=== PATIENT | male | born 1975 | race American Indian/Alaskan Native ===

== ENCOUNTER 2017-06-06 01:35 | Inpatient (IN) | payer OTHER ==
[2017-06-06] MEDS ORDERED: ZEMURON IV ONE ×2 (02:05→05:53)
[2017-06-06] MEDS ORDERED: ARTIFICIAL TEARS OPHTH OINT OU PRN (02:09)
[2017-06-06] MEDS ORDERED: VASELINE LIP THERAPY TP PRN ×2 (02:09→05:38)
--- NOTE | 2017-06-06 02:12 | XRay Report ---
FINAL REPORT EXAM: XR CHEST 1V AP HISTORY: repiratory failure TECHNIQUE: A portable supine view of the chest was submitted. There are no previous studies available for comparison. FINDINGS: The heart size and mediastinum appear normal. The patient is intubated. The tip of the ET tube is 2 cm above the chani in good position. The lungs are clear. Pleural fluid is not seen. The bones and soft tissues do not show any acute changes. IMPRESSION: Satisfactory intubation. No acute infiltrates or congestion.
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
[2017-06-06] MEDS ORDERED: VERSED IV ONE ×2 (02:23→05:53)
[2017-06-06 02:50] LABS: Bilirubin,Urine NEG (Negative); Blood,Urine SM (Negative); Color,Urine Straw (Yellow); Hyaline Casts,Urine 1 /LPF; Nitrite,Urine NEG (Negative); Urobilinogen,Urine < 2.0 mg/dL (<2.0)
[2017-06-06 02:52] LABS: Hemoglobin 11.2 gm/dl (11.8-15.2); Mean Corpuscular HGB Conc 31 % (32-34); Mean Corpuscular Hemoglobin 28 pg (28-32); Mean Corpuscular Volume 89 fl (84-94); Red Blood Count 4.05 M/mm3 (3.65-5.03); Red Cell Distribution Width 16.2 % (13.2-15.2)
[2017-06-06 02:53] LABS: Platelet Count 93 K/mm3 (140-440)
[2017-06-06 02:54] LABS: Creatine Kinase MB 2.1 ng/mL (0.0-4.0)
[2017-06-06 02:55] LABS: Alanine Aminotransferase 31 units/L (7-56); Albumin 4.2 g/dL (3.9-5); BUN/Creatinine Ratio 13; Blood Urea Nitrogen 12 mg/dL (9-20); Calcium 8.4 mg/dL (8.4-10.2); Hemolysis Index 11
[2017-06-06] MEDS: MIDAZOLAM 100 MG in NACL 0.9% 80 ML IV SCH ×2 (03:00→12:18)
[2017-06-06] MEDS ORDERED: VERSED IV NR (03:00)
[2017-06-06 03:26] LABS: Amphetamine Screen,Urine PRESUMPTIVE NEGATIVE; Cannabinoid Screen,Urine PRESUMPTIVE NEGATIVE; Cocaine Screen,Urine PRESUMPTIVE NEGATIVE; Methadone Screen,Urine PRESUMPTIVE NEGATIVE; Opiate Screen,Urine PRESUMPTIVE NEGATIVE
[2017-06-06 03:40] LABS: Basophils % (Manual) 0 % (0.0-1.8); Eosinophils % (Manual) 0 % (0.0-4.3); Platelet Estimate Appears Decreased; Target Cells Few; Total Cells Counted 100
[2017-06-06 04:08] LABS: Benzodiazepines Screen,Urine PRESUMPTIVE POSITIVE
[2017-06-06] MEDS ORDERED: DIPRIVAN 10 MG/ML 1,000 MG/100 ML BOTTLE IV ONE (04:35)
[2017-06-06] MEDS ORDERED: DIPRIVAN 10 MG/ML IV SCH (04:35)
[2017-06-06] MEDS: DIPRIVAN 10 MG/ML 1,000 MG/100 ML BOTTLE IV SCH ×4 (05:52→21:17)
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
[2017-06-06] MEDS ORDERED: HEPARIN SUB-Q SCH (06:00)
[2017-06-06] MEDS ORDERED: VITAMIN B-1 100 MG, FOLVITE 1 MG, INFUVITE 10 ML in NACL 0.9% 1000 ML 1,000 ML IV ONE (06:12)
[2017-06-06] MEDS ORDERED: PANCREAZE DR 10,500 UNIT FEEDTUBE PRN (10:53)
[2017-06-06] MEDS ORDERED: SODIUM BICARBONATE FEEDTUBE PRN (10:53)
[2017-06-06] MEDS ORDERED: SIMPLE SYRUP FEEDTUBE PRN ×2 (10:53)
[2017-06-06] MEDS: KCL 20 MEQ in LACTATED RINGERS 1,000 ML IV SCH ×2 (11:36→21:16)
[2017-06-06] MEDS: fentaNYL DRIP Premix 2,000 MCG/100 ML BAG IV SCH (18:09)
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
--- NOTE | 2017-06-06 18:59 | Event Note ---
Date: 06/06/17 Patient seen and examined, remains on full ventilatory support. Start on gentle hydration, monitor for withdrawal, ARDS and electrolyte abnormality and address as need. Will follow in the ICU
[2017-06-07] MEDS: APRESOLINE IV PRN (03:15)
--- NOTE | 2017-06-07 03:51 | XRay Report ---
FINAL REPORT EXAM: XR CHEST 1V AP HISTORY: follow up respiratory failure TECHNIQUE: A portable upright view the chest was obtained. Comparison is made to the study of 06/06/2017. FINDINGS: The tip of the ET tube is in good position above the chani. The heart size is normal. The lungs are clear. Pleural fluid is not seen. The bones and soft tissues do not show any acute changes. IMPRESSION: No acute infiltrates or congestion.
[2017-06-07] MEDS ORDERED: DILAUDID IV ONE (04:29)
[2017-06-07] MEDS ORDERED: DILAUDID ONE (04:29)
[2017-06-07] MEDS: KCL 20 MEQ in LACTATED RINGERS 1,000 ML IV SCH ×2 (05:04→12:05)
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
[2017-06-07] MEDS ORDERED: Fluarix Quad 2017-2018(36 MOS+ IM ONE (12:00)
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
[2017-06-08] MEDS: KCL 20 MEQ in LACTATED RINGERS 1,000 ML IV SCH ×3 (01:22→20:02)
[2017-06-08] MEDS: DIPRIVAN 10 MG/ML 1,000 MG/100 ML BOTTLE IV SCH ×4 (01:23→23:16)
--- NOTE | 2017-06-08 03:21 | XRay Report ---
FINAL REPORT EXAM: XR CHEST 1V AP HISTORY: follow up respiratory failure TECHNIQUE: A portable semi-upright view of the chest was obtained and compared to the study of 06/07/2017. FINDINGS: The ET tube is in good position above the chani. The heart size is normal. There are no localized infiltrates or congestion. There are EKG leads overlying the chest wall. The bones and soft tissues otherwise are well maintained IMPRESSION: No acute infiltrates or congestion.
[2017-06-08] MEDS: fentaNYL DRIP Premix 2,000 MCG/100 ML BAG IV SCH ×3 (04:00→19:27)
[2017-06-08] MEDS: MIDAZOLAM 100 MG in NACL 0.9% 80 ML IV SCH ×2 (04:01→23:16)
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
[2017-06-08] MEDS: PEPCID IV SCH ×2 (10:47→22:38)
[2017-06-08] MEDS: APRESOLINE IV PRN (11:07)
[2017-06-08 11:14] LABS: Basophils % (Auto) 0.8 % (0.0-1.8); Eosinophils % (Auto) 1.1 % (0.0-4.3); Hemoglobin 12.1 gm/dl (11.8-15.2); Lymphocytes # (Auto) 1.2 K/mm3 (1.2-5.4); Lymphocytes % (Auto) 27.1 % (13.4-35.0); Mean Corpuscular HGB Conc 31 % (32-34); Mean Corpuscular Hemoglobin 28 pg (28-32); Mean Corpuscular Volume 90 fl (84-94); Monocytes # (Auto) 0.4 K/mm3 (0.0-0.8); Monocytes % (Auto) 8.7 % (0.0-7.3); Red Blood Count 4.35 M/mm3 (3.65-5.03); Red Cell Distribution Width 16.1 % (13.2-15.2)
[2017-06-08 11:16] LABS: Platelet Count 83 K/mm3 (140-440)
[2017-06-08 11:30] LABS: Alanine Aminotransferase 18 units/L (7-56); Albumin 3.3 g/dL (3.9-5); BUN/Creatinine Ratio 16; Blood Urea Nitrogen 8 mg/dL (9-20); Calcium 8.1 mg/dL (8.4-10.2); Hemolysis Index 70
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
[2017-06-09] MEDS: fentaNYL DRIP Premix 2,000 MCG/100 ML BAG IV SCH ×4 (02:25→23:49)
[2017-06-09] MEDS: KCL 20 MEQ in LACTATED RINGERS 1,000 ML IV SCH ×3 (02:26→20:00)
[2017-06-09 04:14] LABS: Hematocrit 34.4 % (35.5-45.6); Mean Corpuscular HGB Conc 32 % (32-34); Mean Corpuscular Hemoglobin 28 pg (28-32); Mean Corpuscular Volume 88 fl (84-94); Red Blood Count 3.92 M/mm3 (3.65-5.03)
[2017-06-09 04:15] LABS: Platelet Count 82 K/mm3 (140-440)
[2017-06-09 04:41] LABS: BUN/Creatinine Ratio 12; Blood Urea Nitrogen 6 mg/dL (9-20); Calcium 7.9 mg/dL (8.4-10.2); Hemolysis Index 8
[2017-06-09] MEDS ORDERED: D50W (25GM) Syringe IV PRN (05:07)
[2017-06-09] MEDS: DIPRIVAN 10 MG/ML 1,000 MG/100 ML BOTTLE IV SCH ×4 (05:18→23:49)
[2017-06-09] MEDS: MIDAZOLAM 100 MG in NACL 0.9% 80 ML IV SCH ×2 (05:41→21:36)
--- NOTE | 2017-06-09 09:23 | XRay Report ---
FINAL REPORT PROCEDURE: XR CHEST 1V AP TECHNIQUE: Chest radiograph anteroposterior view. CPT 98116 HISTORY: follow up respiratory failure COMPARISON: Chest one view 06/08/2017 FINDINGS: Endotracheal tube has its tip at the mid to inferior clavicular head level. The trachea is midline. The heart is normal in size. The lungs are clear. There is no evident pneumothorax or pleural fluid. The thoracic cage is intact. IMPRESSION: Endotracheal tube in place. No evident acute cardiopulmonary disease.
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
[2017-06-09] MEDS: PEPCID IV SCH ×2 (10:20→21:37)
[2017-06-09] MEDS ORDERED: XYLOCAINE 1% 20 mL ONE (10:41)
[2017-06-09] MEDS ORDERED: ADRENALIN ONE (10:41)
[2017-06-09] MEDS ORDERED: NACL 0.9% 1000 ML 0 ML ONE (10:42)
[2017-06-09] MEDS ORDERED: WATER FOR IRRIG STERILE IR ONE (10:42)
[2017-06-09] MEDS ORDERED: NACL 0.9% 1000 ML 1,000 ML ONE (11:06)
[2017-06-09] MEDS ORDERED: NACL 0.9% 1,000 ML IR ONE (11:33)
[2017-06-09] MEDS ORDERED: XYLOCAINE 2% INFILTRATI ONE (11:34)
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
[2017-06-09] MEDS: APRESOLINE IV PRN (13:30)
--- NOTE | 2017-06-09 15:57 | XRay Report ---
KUB: 06/09/17 CLINICAL: Feeding tube placement. FINDINGS: A Dobbhoff tube tip is in the left upper quadrant and apparently in the distal stomach.Normal gas pattern. IMPRESSION: Satisfactory position of the feeding tube.
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
--- NOTE | 2017-06-10 04:05 | XRay Report ---
FINAL REPORT EXAM: XR CHEST 1V AP HISTORY: follow up respiratory failure COMPARISON: June 09, 2017 FINDINGS: Frontal view(s) of the chest obtained. Heart normal in size. ETT remains in place. Feeding tube is in place. Distal tip not visualized but extends at least to the mid stomach. There is a small airspace opacity lateral margin right lung base new from prior study concerning for developing pneumonia versus atelectasis. Remaining lungs are grossly clear. No gross focal lucency to suggest pneumothorax. Opacity right lung apex appears to represent overlying support tubing. IMPRESSION: Small opacity lateral right lung base new from prior study concerning for developing atelectasis versus pneumonia. Interval placement of feeding tube. ETT stable in position.
[2017-06-10] MEDS: DIPRIVAN 10 MG/ML 1,000 MG/100 ML BOTTLE IV SCH ×4 (04:35→21:07)
[2017-06-10] MEDS: PROVENTIL IH SCH ×6 (04:58→20:48)
[2017-06-10] MEDS: fentaNYL DRIP Premix 2,000 MCG/100 ML BAG IV SCH ×3 (06:01→19:28)
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
[2017-06-10] MEDS: PEPCID PO SCH ×2 (10:06→21:06)
[2017-06-10] MEDS ORDERED: SIMPLE SYRUP FEEDTUBE PRN ×2 (10:06)
[2017-06-10] MEDS ORDERED: PANCREAZE DR 10,500 UNIT FEEDTUBE PRN (10:06)
[2017-06-10] MEDS ORDERED: SODIUM BICARBONATE FEEDTUBE PRN (10:06)
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
[2017-06-10] MEDS: MIDAZOLAM 100 MG in NACL 0.9% 80 ML IV SCH (21:53)
[2017-06-11] MEDS: DIPRIVAN 10 MG/ML 1,000 MG/100 ML BOTTLE IV SCH ×5 (01:45→17:46)
[2017-06-11] MEDS: PROVENTIL IH SCH ×4 (01:56→19:19)
[2017-06-11 03:50] LABS: Hematocrit 37.2 % (35.5-45.6); Mean Corpuscular HGB Conc 32 % (32-34); Mean Corpuscular Hemoglobin 28 pg (28-32); Mean Corpuscular Volume 87 fl (84-94); Platelet Count 112 K/mm3 (140-440); Red Blood Count 4.29 M/mm3 (3.65-5.03); Red Cell Distribution Width 14.8 % (13.2-15.2)
[2017-06-11 04:17] LABS: BUN/Creatinine Ratio 16; Blood Urea Nitrogen 8 mg/dL (9-20); Calcium 8.9 mg/dL (8.4-10.2); Hemolysis Index 11
[2017-06-11] MEDS: fentaNYL DRIP Premix 2,000 MCG/100 ML BAG IV SCH ×2 (05:18→13:43)
--- NOTE | 2017-06-11 07:41 | XRay Report ---
FINAL REPORT EXAM: XR CHEST 1V AP HISTORY: follow up respiratory failure TECHNIQUE: AP portable view(s) of the chest obtained. PRIORS: 06/10/2017 FINDINGS: Endotracheal tube terminates approximately 5 cm from the chani. Enteric tube courses below the diaphragm and off of the inferior field of view. No mediastinal shift. Cardiac silhouette is not enlarged. No pneumothorax, effusion, or focal pulmonary opacity identified. No acute skeletal findings. IMPRESSION: Satisfactory appearance of patient's support apparatus without pneumothorax or other acute finding compared to 06/10/2017.
[2017-06-11] MEDS: PEPCID PO SCH ×2 (09:52→21:15)
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
[2017-06-11] MEDS: APRESOLINE IV PRN ×2 (16:38→19:33)
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
[2017-06-11] MEDS: HALDOL IV PRN (19:00)
[2017-06-11] MEDS ORDERED: ATIVAN IV ONE (20:00)
[2017-06-11] MEDS: ATIVAN IV PRN ×2 (21:29→22:13)
[2017-06-12] MEDS: ATIVAN IV PRN ×11 (00:05→15:27)
[2017-06-12] MEDS: APRESOLINE IV PRN ×4 (01:41→21:22)
[2017-06-12] MEDS: PROVENTIL IH SCH ×4 (01:47→20:26)
[2017-06-12] MEDS: HALDOL IV PRN ×3 (08:40→21:22)
--- NOTE | 2017-06-12 09:49 | XRay Report ---
AP CHEST: HISTORY: Followup respiratory failure The patient has been extubated and the feeding tube has been removed since 06/11/17. There is minor segmental atelectasis at the left lung base, otherwise, the lungs are clear. Heart and mediastinal structures are within normal limits. IMPRESSION: Unremarkable AP chest.
[2017-06-12] MEDS: PEPCID PO SCH ×2 (13:58→21:23)
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
[2017-06-12] MEDS: D5/0.45NS 1,000 ML IV SCH (18:09)
[2017-06-13] MEDS: ATIVAN IV PRN ×6 (00:28→23:17)
[2017-06-13] MEDS: D5/0.45NS 1,000 ML IV SCH ×3 (00:34→18:08)
[2017-06-13] MEDS: PROVENTIL IH SCH ×4 (02:21→19:41)
[2017-06-13] MEDS: HALDOL IV PRN ×3 (02:37→22:35)
--- NOTE | 2017-06-13 03:10 | XRay Report ---
FINAL REPORT EXAM: XR CHEST 1V AP HISTORY: follow up respiratory failure COMPARISON: June 11, 2017. FINDINGS: Frontal view(s) of the chest obtained. Cardiac silhouette within normal limits. No gross consolidation or effusion. No pneumothorax. IMPRESSION: No grossly acute findings.
[2017-06-13] MEDS: APRESOLINE IV PRN ×2 (09:58→14:32)
[2017-06-13] MEDS: PEPCID IV SCH ×2 (09:59→22:35)
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
[2017-06-13 13:41] LABS: Hemoglobin 11.2 gm/dl (11.8-15.2); Mean Corpuscular HGB Conc 32 % (32-34); Mean Corpuscular Hemoglobin 28 pg (28-32); Mean Corpuscular Volume 86 fl (84-94); Platelet Count 144 K/mm3 (140-440); Red Blood Count 4.06 M/mm3 (3.65-5.03)
[2017-06-13 14:00] LABS: BUN/Creatinine Ratio 18; Blood Urea Nitrogen 9 mg/dL (9-20); Calcium 8.9 mg/dL (8.4-10.2); Hemolysis Index 1
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
[2017-06-14] MEDS: ATIVAN IV PRN ×2 (00:38→04:05)
[2017-06-14] MEDS: PROVENTIL IH SCH ×4 (01:55→20:00)
[2017-06-14] MEDS: HALDOL IV PRN (03:20)
[2017-06-14] MEDS: APRESOLINE IV PRN (04:21)
[2017-06-14] MEDS: PEPCID IV SCH ×2 (09:28→21:05)
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
[2017-06-14] MEDS: D5/0.45NS 1,000 ML IV SCH ×2 (13:20→20:48)
[2017-06-14] MEDS: HEPARIN SUB-Q SCH ×2 (14:35→21:05)
[2017-06-14] MEDS: LIBRIUM PO SCH ×2 (14:58→20:41)
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
[2017-06-15] MEDS: PROVENTIL IH SCH ×4 (02:11→20:16)
[2017-06-15] MEDS: LIBRIUM PO SCH ×3 (03:35→21:22)
[2017-06-15] MEDS: D5/0.45NS 1,000 ML IV SCH (04:58)
[2017-06-15] MEDS: HEPARIN SUB-Q SCH ×3 (04:59→21:22)
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
[2017-06-15] MEDS ORDERED: CATAPRES-TTS PATCH TD SCH (10:00)
[2017-06-15] MEDS: PEPCID PO SCH ×2 (11:03→21:21)
[2017-06-15] MEDS: APRESOLINE PO SCH ×2 (14:43→21:21)
[2017-06-16] MEDS: PROVENTIL IH SCH ×2 (01:51→08:30)
[2017-06-16] MEDS: LIBRIUM PO SCH (04:44)
[2017-06-16] MEDS: APRESOLINE PO SCH (06:11)
[2017-06-16] MEDS: HEPARIN SUB-Q SCH (06:12)
[2017-06-16 06:40] LABS: Hematocrit 35.9 % (35.5-45.6); Hemoglobin 11.5 gm/dl (11.8-15.2); Mean Corpuscular HGB Conc 32 % (32-34); Mean Corpuscular Hemoglobin 28 pg (28-32); Mean Corpuscular Volume 86 fl (84-94); Platelet Count 166 K/mm3 (140-440); Red Blood Count 4.16 M/mm3 (3.65-5.03); Red Cell Distribution Width 15.1 % (13.2-15.2)
[2017-06-16 07:04] LABS: BUN/Creatinine Ratio 13; Blood Urea Nitrogen 8 mg/dL (9-20); Calcium 8.6 mg/dL (8.4-10.2); Hemolysis Index 4
[2017-06-16 08:14] VITALS: BP 134/89
[2017-06-16] MEDS ORDERED: K-DUR PO SCH (09:00)
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
[2017-06-16] MEDS: PEPCID PO SCH (10:12)
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
== END 2017-06-16 12:40 | disposition home or self-care (01) | DRG 917 ==
LOC: ED 01:35 → CC1 05:58
PROVIDERS: ADMIT Internal Medicine; ATTEND Internal Medicine
PROC: 5A1955Z Respiratory Ventilation, Greater than 96 Consecutive Hours (ICD-10-PCS; 2017-06-06)
PROC: 4A033R1 Measurement of Arterial Saturation, Peripheral, Percutaneous Approach (ICD-10-PCS; 2017-06-06)
PROC: 0BH17EZ Insertion of Endotracheal Airway into Trachea, Via Natural or Artificial Opening (ICD-10-PCS; 2017-06-06)
PROC: 3E0234Z Introduction of Serum, Toxoid and Vaccine into Muscle, Percutaneous Approach (ICD-10-PCS; principal; 2017-06-07)
PROC: 3E1F88Z Irrigation of Respiratory Tract using Irrigating Substance, Via Natural or Artificial Opening Endoscopic (ICD-10-PCS; 2017-06-09)
PROC: 5A09557 Assistance with Respiratory Ventilation, Greater than 96 Consecutive Hours, Continuous Positive Airway Pressure (ICD-10-PCS; 2017-06-11)
DX: T58.91XA Toxic effect of carbon monoxide from unspecified source, accidental (unintentional), initial encounter (principal); J96.00 Acute respiratory failure, unspecified whether with hypoxia or hypercapnia; G92 Toxic encephalopathy; T27.3XXA Burn of respiratory tract, part unspecified, initial encounter; E87.2 Acidosis; I10 Essential (primary) hypertension; E86.0 Dehydration; J70.5 Respiratory conditions due to smoke inhalation; J40 Bronchitis, not specified as acute or chronic; E16.2 Hypoglycemia, unspecified; D64.9 Anemia, unspecified; D69.6 Thrombocytopenia, unspecified; K70.10 Alcoholic hepatitis without ascites; F10.129 Alcohol abuse with intoxication, unspecified; Z79.899 Other long term (current) drug therapy; Z71.41 Alcohol abuse counseling and surveillance of alcoholic; Z91.19 Patient's noncompliance with other medical treatment and regimen; Y93.89 Activity, other specified; Y99.8 Other external cause status; Y92.89 Other specified places as the place of occurrence of the external cause; Z23 Encounter for immunization
CPT/HCPCS: 36415; 36600; 70450; 71045; 74018; 80048; 80053; 80307; 80320; 81001; 82550; 82553; 82803; 82962; 84478; 84484; 85007; 85025; 85027; 87070; 87205; 90686; 93005; 93010; 94002; 94003; 94640; 94660; 94760; 96365; 96366; 96375; 99292; G0480; J0171; J0360; J1170; J1630; J1644; J2060; J2250; J2704; J2920; J3010; J3411; J3480; J7030; J7120

== ENCOUNTER 2017-10-06 13:29 | Emergency (ER) | payer OTHER ==
[2017-10-06 14:19] VITALS: BP 115/78
--- NOTE | 2017-10-06 14:55 | XRay Report ---
LEFT FOOT, 3 views: History: Pain and swelling. The bony architecture is intact. Bony alignment is normal. No soft tissue abnormalities are seen. The joint spaces appear preserved. IMPRESSION: Normal left foot.
[2017-10-06] MEDS ORDERED: MOTRIN PO ONE (16:16)
--- NOTE | 2017-10-06 16:21 | Emergency Department Report ---
ED Lower Extremity HPI - General Chief Complaint: Extremity Injury, Lower Stated Complaint: FOOT PAIN Time Seen by Provider: 10/06/17 16:15 Source: patient Mode of arrival: Ambulatory Limitations: No Limitations - History of Present Illness Initial Comments: This is a 41-year-old male nontoxic, well nourished in appearance, no acute signs of distress presents to the ED with c/o of left foot pain status post fall that occurred today. Patient stated that he was getting out of his truck today and fell on his foot. Patient stated that he did not have any trauma to the head or any other extremities. Patient denies any joint redness, joint swelling, fever, chills, nausea, vomiting, chest pain or shortness breath. Patient denies abnormal or decreased gait. Patient denies any allergies. PMH includes HTN and DM. MD Complaint: foot injury -: This afternoon Injury: Foot: Left Type of Injury: blunt Place: street/outdoors Severity: mild Severity scale (0 -10): 8 Improves With: immobilization Worsens With: movement, palpation Context: direct blow Associated Symptoms: swelling, able to partially bear weight, ambulatory. denies: snap/pop sensation, numbness, tingling, unable to bear weight - Related Data Previous Rx's Medication Instructions Recorded Last Taken Type Folic Acid [Folvite] 1 mg PO QDAY #30 tablet 06/16/17 Unknown Rx Thiamine [Vitamin B-1] 100 mg PO QDAY #30 tablet 06/16/17 Unknown Rx amLODIPine [Norvasc] 10 mg PO DAILY #30 tab 06/16/17 Unknown Rx hydrALAZINE [Apresoline TAB] 50 mg PO BID #60 tab 06/16/17 Unknown Rx Acetaminophen/Codeine [Tylenol 1 tab PO Q6H PRN #12 tab 10/06/17 Unknown Rx /Codeine # 3 tab] Ibuprofen [Motrin] 600 mg PO Q8H PRN #30 tablet 10/06/17 Unknown Rx Allergies Allergy/AdvReac Type Severity Reaction Status Date / Time No Known Allergies Allergy Verified 10/06/17 14:15 ED Review of Systems ROS: Stated complaint: FOOT PAIN Other details as noted in HPI Constitutional: denies: chills, fever Eyes: denies: eye pain, eye discharge, vision change ENT: denies: ear pain, throat pain Respiratory: denies: cough, shortness of breath, wheezing Cardiovascular: denies: chest pain, palpitations Endocrine: no symptoms reported Gastrointestinal: denies: abdominal pain, nausea, diarrhea Genitourinary: denies: urgency, dysuria Musculoskeletal: arthralgia. denies: back pain, joint swelling Skin: denies: rash, lesions Neurological: denies: headache, weakness, paresthesias Psychiatric: denies: anxiety, depression Hematological/Lymphatic: denies: easy bleeding, easy bruising ED Past Medical Hx - Past Medical History Hx Hypertension: Yes Hx Congestive Heart Failure: No Hx Diabetes: No Hx Deep Vein Thrombosis: Yes Hx Asthma: No Hx COPD: No Additional medical history: ETOH abuse, pancreatitis - Social History Smoking Status: Current Every Day Smoker Substance Use Type: Alcohol, Marijuana - Medications Home Medications: Home Medications Medication Instructions Recorded Confirmed Last Taken Type Folic Acid [Folvite] 1 mg PO QDAY #30 tablet 06/16/17 Unknown Rx Thiamine [Vitamin B-1] 100 mg PO QDAY #30 tablet 06/16/17 Unknown Rx amLODIPine [Norvasc] 10 mg PO DAILY #30 tab 06/16/17 Unknown Rx hydrALAZINE [Apresoline TAB] 50 mg PO BID #60 tab 06/16/17 Unknown Rx Acetaminophen/Codeine [Tylenol 1 tab PO Q6H PRN #12 tab 10/06/17 Unknown Rx /Codeine # 3 tab] Ibuprofen [Motrin] 600 mg PO Q8H PRN #30 tablet 10/06/17 Unknown Rx ED Physical Exam - General Limitations: No Limitations General appearance: alert, in no apparent distress - Head Head exam: Present: atraumatic, normocephalic - Eye Eye exam: Present: normal appearance Pupils: Present: normal accommodation - ENT ENT exam: Present: normal exam, mucous membranes moist - Neck Neck exam: Present: normal inspection, full ROM. Absent: tenderness, meningismus, lymphadenopathy - Respiratory Respiratory exam: Present: normal lung sounds bilaterally. Absent: respiratory distress, wheezes, rales, rhonchi, stridor, chest wall tenderness, accessory muscle use, decreased breath sounds, prolonged expiratory - Cardiovascular Cardiovascular Exam: Present: regular rate, normal rhythm, normal heart sounds. Absent: irregular rhythm, systolic murmur, diastolic murmur, rubs, gallop - GI/Abdominal GI/Abdominal exam: Present: soft, normal bowel sounds. Absent: distended, tenderness, guarding, rebound, rigid, diminished bowel sounds - Rectal Rectal exam: Present: deferred - Extremities Exam Extremities exam: Present: normal inspection, full ROM, tenderness, normal capillary refill. Absent: pedal edema, joint swelling, calf tenderness - Expanded Lower Extremity Exam Left Hip exam: Present: normal inspection, full ROM Upper Leg exam: Present: normal inspection, full ROM Knee exam: Present: normal inspection, full ROM Lower Leg exam: Present: normal inspection, full ROM. Absent: tenderness, swelling, abrasion, laceration, ecchymosis, deformity, crepidus, dislocation, erythema, palpable cord, Vicky's sign Ankle exam: Present: normal inspection, full ROM. Absent: tenderness, swelling , abrasion, laceration, ecchymosis, deformity, crepidus, dislocation, erythema, anterior draw sign Foot/Toe exam: Present: normal inspection, full ROM, tenderness, swelling. Absent: abrasion, laceration, ecchymosis, deformity, crepidus, dislocation, erythema, amputation, puncture wound, foreign body, calcaneal tenderness, tenderness at base of 5th metatarsal, nail avulsion, subungual hematoma Neuro vascular tendon exam: Present: no vascular compromise. Absent: pulse deficit, abnormal cap refill, motor deficit, sensory deficit, tendon deficit, extremity cold to touch, pallor, abnormal 2-point discrimination, decreased fine /light touch, foot drop, peroneal nerve deficit, significant pain with passive ROM of distal joint Gait: Positive: observed and limited by pain 1 - pain and swelling - Back Exam Back exam: Present: normal inspection, full ROM. Absent: paraspinal tenderness , vertebral tenderness - Neurological Exam Neurological exam: Present: alert, oriented X3, normal gait - Psychiatric Psychiatric exam: Present: normal affect, normal mood - Skin Skin exam: Present: warm, dry, intact, normal color. Absent: rash ED Course Vital Signs 10/06/17 14:15 Temperature 97.9 F Pulse Rate 109 H Respiratory 18 Rate Blood Pressure 115/78 O2 Sat by Pulse 100 Oximetry - Reevaluation(s) Reevaluation #1: 10/06/17 16:23 Patient is speaking in full sentences with no signs of distress noted. ED Lower Extremity MDM - Radiology Data This is a 41-year-old male that presents with left foot sprain. Patient is stable and was examined by me. I referred patient to an orthopedic doctor for further evaluation for possible MRI. X-ray has been obtained and dictated by the radiologist. Patient is notified of the x-ray report with noted by the patient. Patient does have normal gait with no tenderness and no joint swelling. No ecchymosis. no joint redness or swelling. Not warm to touch. No signs of cellulites present. Patient received a ortho post op boat. Patient was instructed to RICE therapy. Patient received Motrin and Ice in the ED for pain. Patient is discharged with Motrin. At time of discharge, the patient does not seem toxic or ill in appearance. No acute signs of distress noted. Patient agrees to discharge treatment plan of care. No further questions noted by the patient. Critical care attestation.: If time is entered above; I have spent that time in minutes in the direct care of this critically ill patient, excluding procedure time. ED Disposition Clinical Impression: Sprain of left foot Qualifiers: Encounter type: initial encounter Qualified Code(s): S93.602A - Unspecified sprain of left foot, initial encounter Disposition: TO HOME OR SELFCARE Is pt being admited?: No Does the pt Need Aspirin: No Condition: Stable Instructions: Foot Sprain (ED), RICE Therapy (ED), Ibuprofen (By mouth) Additional Instructions: Follow-up with a orthopedic doctor in 3-5 days or if symptoms worsen and continue return to emergency room as soon as possible. Prescriptions: Acetaminophen/Codeine [Tylenol /Codeine # 3 tab] 1 tab PO Q6H PRN #12 tab PRN Reason: Pain Ibuprofen [Motrin] 600 mg PO Q8H PRN #30 tablet PRN Reason: Pain Referrals: JEANETH AVENDANO MD [Staff Physician] - 3-[address] [facility] [Outside] - 3-5 Days [facility] [Outside] - 3-5 Days PRIMARY CARE, [Referring] - 3-5 Days Forms: Work/School Release Form(ED)
== END 2017-10-06 18:26 | disposition home or self-care (01) ==
LOC: ED 13:29
DX: S93.602A Unspecified sprain of left foot, initial encounter (principal); I10 Essential (primary) hypertension; F17.200 Nicotine dependence, unspecified, uncomplicated; F12.10 Cannabis abuse, uncomplicated; W18.30XA Fall on same level, unspecified, initial encounter; Y93.89 Activity, other specified; Y92.89 Other specified places as the place of occurrence of the external cause; Y99.8 Other external cause status
CPT/HCPCS: 99284

== ENCOUNTER 2018-07-04 03:47 | Emergency (ER) | payer SELFPAY ==
[2018-07-04 04:36] LABS: Basophils # (Auto) 0.1 K/mm3 (0.0-0.1); Basophils % (Auto) 1.2 % (0.0-1.8); Eosinophils % (Auto) 0.1 % (0.0-4.3); Hematocrit 42.5 % (35.5-45.6); Hemoglobin 13.6 gm/dl (11.8-15.2); Lymphocytes # (Auto) 1.6 K/mm3 (1.2-5.4); Lymphocytes % (Auto) 25.6 % (13.4-35.0); Mean Corpuscular HGB Conc 32 % (32-34); Mean Corpuscular Volume 88 fl (84-94); Monocytes # (Auto) 0.3 K/mm3 (0.0-0.8); Monocytes % (Auto) 4.3 % (0.0-7.3); Platelet Count 145 K/mm3 (140-440); Red Blood Count 4.85 M/mm3 (3.65-5.03); Red Cell Distribution Width 14.9 % (13.2-15.2)
[2018-07-04 04:44] LABS: Alanine Aminotransferase 14 units/L (7-56); Albumin 4.6 g/dL (3.9-5); BUN/Creatinine Ratio 12; Blood Urea Nitrogen 6 mg/dL (9-20); Hemolysis Index 13
[2018-07-04 05:39] LABS: Bilirubin,Urine NEG (Negative); Blood,Urine NEG (Negative); Color,Urine Yellow (Yellow); Mucus,Urine 2+ /HPF; Protein,Urine <15 mg/dL mg/dL (Negative); Urobilinogen,Urine < 2.0 mg/dL (<2.0)
[2018-07-04] MEDS ORDERED: MORPHINE IV ONE (06:50)
[2018-07-04] MEDS ORDERED: ZOFRAN IV ONE (06:50)
[2018-07-04] MEDS ORDERED: NACL 0.9% 1000 ML 1,000 ML IV ONE (06:50)
[2018-07-04] MEDS ORDERED: PEPCID IV ONE (06:50)
--- NOTE | 2018-07-04 06:50 | Emergency Department Report ---
ED Abdominal Pain HPI - General Chief Complaint: Abdominal Pain Stated Complaint: ABDOMINAL PAIN Time Seen by Provider: 07/04/18 06:27 Source: patient Mode of arrival: Ambulatory Limitations: No Limitations - History of Present Illness Initial Comments: Mr. Hyman is a very pleasant 42 yo male with hx of alcohol abuse, alcohol- induced pancreatitis, thrombocytopenia, HTN who presents with severe epigastric pain radiating to back with nausea/vomiting. Begain last night 7 PM. He really does not eat much food. Drank a fifth of vodka prior to developing pain. He plans to go to a rehab program for alcoholism in 2 weeks. 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 -: Gradual, This evening Location: epigastric Radiation: back Severity: severe Severity scale (0 -10): 10 Quality: sharp Consistency: constant Improves With: nothing Worsens With: nothing Associated Symptoms: nausea, vomiting - Related Data Previous Rx's Medication Instructions Recorded Last Taken Type amLODIPine [Norvasc] 10 mg PO DAILY #30 tab 06/16/17 Unknown Rx Famotidine 20 mg PO BID 30 Days #60 tablet 07/04/18 Unknown Rx HYDROcodone/APAP 5-325 [[place] 1 each PO Q6HR PRN #10 tablet 07/04/18 Unknown Rx 5/325] Promethazine [Phenergan TAB] 25 mg PO Q6HR PRN #10 tab 07/04/18 Unknown Rx Allergies Allergy/AdvReac Type Severity Reaction Status Date / Time No Known Allergies Allergy Verified 10/06/17 14:15 ED Review of Systems ROS: Stated complaint: ABDOMINAL PAIN Other details as noted in HPI Comment: All other systems reviewed and negative Constitutional: denies: fever, malaise Respiratory: denies: cough ED Past Medical Hx - Past Medical History Previous Medical History?: Yes Hx Hypertension: Yes Hx Congestive Heart Failure: No Hx Diabetes: No Hx Deep Vein Thrombosis: Yes Hx Asthma: No Hx COPD: No Additional medical history: ETOH abuse, pancreatitis - Surgical History Past Surgical History?: No - Family History Family history: other (alcoholism) - Social History Smoking Status: Current Every Day Smoker Substance Use Type: Alcohol, Marijuana - Medications Home Medications: Home Medications Medication Instructions Recorded Confirmed Last Taken Type amLODIPine [Norvasc] 10 mg PO DAILY #30 tab 06/16/17 07/04/18 Unknown Rx Famotidine 20 mg PO BID 30 Days #60 tablet 07/04/18 Unknown Rx HYDROcodone/APAP 5-325 [[place] 1 each PO Q6HR PRN #10 tablet 07/04/18 Unknown Rx 5/325] Promethazine [Phenergan TAB] 25 mg PO Q6HR PRN #10 tab 07/04/18 Unknown Rx ED Physical Exam - General Limitations: No Limitations General appearance: alert, in no apparent distress - Head Head exam: Present: atraumatic, normocephalic - Eye Eye exam: Present: normal appearance - ENT ENT exam: Present: mucous membranes moist - Neck Neck exam: Present: normal inspection. Absent: tenderness - Respiratory Respiratory exam: Present: normal lung sounds bilaterally. Absent: respiratory distress, wheezes, rales - Cardiovascular Cardiovascular Exam: Present: regular rate, normal rhythm, normal heart sounds. Absent: systolic murmur, diastolic murmur, rubs, gallop - GI/Abdominal GI/Abdominal exam: Present: soft, normal bowel sounds. Absent: distended, tenderness, guarding, rebound - Rectal Rectal exam: Present: deferred - Extremities Exam Extremities exam: Present: normal inspection - Back Exam Back exam: Present: normal inspection - Neurological Exam Neurological exam: Present: alert, oriented X3 - Psychiatric Psychiatric exam: Present: normal affect, normal mood - Skin Skin exam: Present: warm, dry, intact, normal color. Absent: rash ED Course Vital Signs 07/04/18 07/04/18 07/04/18 03:51 06:16 09:56 Temperature 97.8 F 98.6 F Pulse Rate 89 79 82 Respiratory 18 14 16 Rate Blood Pressure 154/118 176/116 Blood Pressure 166/107 [Left] O2 Sat by Pulse 97 98 100 Oximetry ED Medical Decision Making - Lab Data Result diagrams: 07/04/18 04:00 07/04/18 04:00 Laboratory Results - last 24 hr 07/04/18 07/04/18 07/04/18 04:00 04:00 04:50 WBC 6.3 RBC 4.85 Hgb 13.6 Hct 42.5 MCV 88 MCH 28 MCHC 32 RDW 14.9 Plt Count 145 Lymph % (Auto) 25.6 [place] % (Auto) 4.3 Eos % (Auto) 0.1 Baso % (Auto) 1.2 Lymph # 1.6 [place] # 0.3 Eos # 0.0 Baso # 0.1 Seg Neutrophils % 68.8 Seg Neutrophils # 4.3 Sodium 145 Potassium 4.1 Chloride 103.2 Carbon Dioxide 23 Anion Gap 23 BUN 6 L Creatinine 0.5 L Estimated GFR > 60 BUN/Creatinine Ratio 12 Glucose 95 Calcium 9.0 Total Bilirubin 0.30 AST 35 ALT 14 Alkaline Phosphatase 54 Total Protein 7.2 Albumin 4.6 Albumin/Globulin Ratio 1.8 Lipase 29 Urine Bilirubin Neg Urine RBC (Auto) 2.0 U Epithel Cells (Auto) 1.0 - Medical Decision Making Miss Hyman is a 42-year-old male who presents with severe epigastric pain radiating to back after drinking a large amount of vodka. Differential diagnosis includes acute on chronic pancreatitis versus alcoholic gastritis versus peptic ulcer disease versus biliary colic. Mr. Hyman appears well. He appears comfortable. No evidence of peritonitis on clinical exam. Normal white count seen on labs. Normal lipase. Received supportive care with IV fluid, IV antiemetic, IV H2 rebecca and IV analgesia. Rx: norco, famotidine, promethazine He will try to stop or decreased alcohol intake. Critical care attestation.: If time is entered above; I have spent that time in minutes in the direct care of this critically ill patient, excluding procedure time. ED Disposition Clinical Impression: Abdominal pain, Acute abdominal pain, Alcohol abuse Disposition: - TO HOME OR SELFCARE Is pt being admited?: No Does the pt Need Aspirin: No Condition: Stable Instructions: Acute Abdominal Pain (ED), Abuse of Alcohol (ED) Prescriptions: Famotidine 20 mg PO BID 30 Days #60 tablet HYDROcodone/APAP 5-325 [[place] 5/325] 1 each PO Q6HR PRN #10 tablet PRN Reason: Pain Promethazine [Phenergan TAB] 25 mg PO Q6HR PRN #10 tab PRN Reason: Nausea Referrals: KAUSHIK HART MD [Primary Care Provider] - 3-5 Days Forms: Work/School Release Form(ED)
[2018-07-04] MEDS ORDERED: PERCOCET 5/325 PO ONE (10:30)
[2018-07-04] MEDS ORDERED: ALUM-MAG HYDROX-SIMETH 200-200-20MG/5ML PO ONE (10:31)
[2018-07-04 11:15] VITALS: BP 166/98
== END 2018-07-04 11:09 | disposition home or self-care (01) ==
LOC: ED 03:47
DX: R10.13 Epigastric pain (principal); R11.2 Nausea with vomiting, unspecified; F10.129 Alcohol abuse with intoxication, unspecified; I10 Essential (primary) hypertension; F17.200 Nicotine dependence, unspecified, uncomplicated; F12.10 Cannabis abuse, uncomplicated; Z86.718 Personal history of other venous thrombosis and embolism
CPT/HCPCS: 36415; 80053; 81001; 83690; 85025; 96361; 96374; 96375; 99284; J2270; J2405; J7030

== ENCOUNTER 2019-04-16 11:12 | Emergency (ER) | payer SELFPAY ==
[2019-04-16 12:10] VITALS: BP 132/88
--- NOTE | 2019-04-16 12:11 | Event Note ---
ED Screening Note Date of service: 04/16/19 Time: 12:06 ED Screening Note: This is a 43 y.o. M. that presents to the ER with left groin pain x 3 days. Denies swelling. Reports pain as similar to the last time he had a DVT in left leg. Denies urinary frequency, urgency, testicular swelling/pain, dysuria, or penile discharge. This initial assessment/diagnostic orders/clinical plan/treatment(s) is/are subject to change based on patients health status, clinical progression and re-assessment by fellow clinical providers in the ED. Further treatment and workup at subsequent clinical providers discretion. Patient/guardian urged not to elope from the ED as their condition may be serious if not clinically assessed and managed. Initial orders include: Doppler of left leg
--- NOTE | 2019-04-16 13:04 | Vascular Lab Report ---
DUPLEX DOPPLER LOWER EXTREMITY VEINS, LEFT INDICATION: groin pain r/o dvt, hx dvt left leg. TECHNIQUE: Duplex doppler imaging was performed through the veins of the left lower extremity using venous compr ession and other maneuvers. COMPARISON: No relevant prior imaging study available. FINDINGS: Left Common femoral vein: Negative. Left Superficial femoral vein: Negative for acute DVT. There is minimal marginal thrombus in the mid segment. Left Popliteal vein: Negative. Left Calf veins: Negative. Additional findings: None.. IMPRESSION: 1. No sonographic evidence for acute DVT in the left lower extremity. 2. Marginalized chronic-appearing thrombus in the mid SFV. Signer Name: Kodak Mehta MD Signed: 04/16/2019 1:00 PM Workstation Name: [id number]
--- NOTE | 2019-04-16 14:34 | Emergency Department Report ---
HPI - General Chief Complaint: Extremity Problem,Nontraumatic Time Seen by Provider: 04/16/19 12:06 - HPI HPI: 43-year-old female presents to the emergency department with complaint of some pain to the left upper leg, near the groin, for the past 3 days. He denies any fall, trauma/injury or obvious inciting event. However he says it feels similar to when he had a DVT 12 years ago. 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 He denies any leg swelling, skin color change, swelling in the groin, pain in the scrotum or testicles. He has not taken anything for her symptoms prior to presentation. He has a past mental history of previous alcohol abuse and alcohol-induced pancreatitis. ED Past Medical Hx - Past Medical History Hx Hypertension: Yes Hx Congestive Heart Failure: No Hx Diabetes: No Hx Deep Vein Thrombosis: Yes Hx Asthma: No Hx COPD: No Additional medical history: ETOH abuse, pancreatitis - Surgical History Past Surgical History?: No - Social History Smoking Status: Current Every Day Smoker Substance Use Type: Alcohol - Medications Home Medications: Home Medications Medication Instructions Recorded Confirmed Last Taken Type amLODIPine 10 mg PO DAILY #30 tab 06/16/17 07/04/18 Unknown Rx Famotidine 20 mg PO BID 30 Days #60 tablet 07/04/18 Unknown Rx Promethazine [Phenergan] 25 mg PO Q6HR PRN #10 tab 07/04/18 Unknown Rx HYDROcodone/APAP 5-325 [[place] 1 each PO Q6HR PRN #8 tablet 04/16/19 Unknown Rx 5-325 mg TAB] ED Review of Systems ROS: Stated complaint: POSS BLOOD CLOT/LT LEG Other details as noted in HPI Comment: All other systems reviewed and negative Constitutional: denies: fever Respiratory: denies: shortness of breath Cardiovascular: denies: chest pain, edema Musculoskeletal: arthralgia, myalgia. denies: joint swelling Skin: denies: rash, lesions Neurological: denies: numbness, paresthesias Physical Exam - Physical Exam Vital Signs: Vital Signs 04/16/19 04/16/19 12:09 14:03 Temperature 98.9 F Pulse Rate 94 H Respiratory 20 17 Rate Blood Pressure 132/88 O2 Sat by Pulse 99 Oximetry Physical Exam: GENERAL: The patient is well-developed well-nourished. HENT: Normocephalic. Atraumatic. Patient has moist mucous membranes. EYES: Extraocular motions are intact. NECK: Supple. Trachea is midline. ABDOMEN: Abdomen is soft, nontender. Patient has normal bowel sounds. There is no abdominal distention. SKIN: Skin is warm and dry. NEURO: The patient is awake, alert, and oriented. The patient is cooperative. The patient has no focal neurologic deficits. Normal speech. MUSCULOSKELETAL: Unable to reproduce left upper thigh and groin pain to palpation. No obvious deformity. There is no limitation range of motion. There is no evidence of acute injury. ED Course Vital Signs 04/16/19 04/16/19 12:09 14:03 Temperature 98.9 F Pulse Rate 94 H Respiratory 20 17 Rate Blood Pressure 132/88 O2 Sat by Pulse 99 Oximetry ED Medical Decision Making - Radiology Data Radiology results: report reviewed DUPLEX DOPPLER LOWER EXTREMITY VEINS, LEFT INDICATION: groin pain r/o dvt, hx dvt left leg. TECHNIQUE: Duplex doppler imaging was performed through the veins of the left lower extremity using venous compression and other maneuvers. COMPARISON: No relevant prior imaging study available. FINDINGS: Left Common femoral vein: Negative. Left Superficial femoral vein: Negative for acute DVT. There is minimal marginal thrombus in the mid segment. Left Popliteal vein: Negative. Left Calf veins: Negative. Additional findings: None.. IMPRESSION: 1. No sonographic evidence for acute DVT in the left lower extremity. 2. Marginalized chronic-appearing thrombus in the mid SFV. - Medical Decision Making This patient presents with a few days of some pain to the left upper thigh, almost in the groin, that gave him concern for having gotten a DVT as this was the presentation of his previous DVT from 12 years ago. However this time there is no swelling of the leg. He had a left lower extremity venous Doppler ultrasound that was negative for acute DVT and shows a marginal eyes chronic appearing thrombus in the mid SFV. Otherwise the patient has not had any trauma or injury and I did not feel that x-ray imaging was necessary at this time. He will be given a referral for orthopedist and will return to the ER with any worsening of his symptoms or any acute distress. Patient was seen ambulatory in the emergency department and appears stable. - Differential Diagnosis DVT, muscle spasm, muscle strain, hernia Critical Care Time: No Critical care attestation.: If time is entered above; I have spent that time in minutes in the direct care of this critically ill patient, excluding procedure time. ED Disposition Clinical Impression: Left leg pain Disposition: DC-01 TO HOME OR SELFCARE Is pt being admited?: No Condition: Stable Instructions: Arthralgia (ED) Additional Instructions: Please follow-up with a primary care physician in the next few days and I have given you a referral for a private primary care physician and a clinic. I have also given you a referral for a local orthopedist, Dr. Reza, to follow up regarding her left leg pain. Return to the emergency Department with any worsening of your symptoms or any acute distress. You have been prescribed a medication that is sedating and therefore should not be taken prior to driving, working, and responsible for children and in no way should be mixed with alcohol of any quantity. Prescriptions: HYDROcodone/APAP 5-325 [[place] 5-325 mg TAB] 1 each PO Q6HR PRN #8 tablet PRN Reason: Pain Referrals: KAUSHIK HART MD [Staff Physician] - 2-3 Days [facility] [Outside] - 2-3 Days JEANETH REZA MD [Staff Physician] - 2-3 Days Forms: Work/School Release Form(ED) Time of Disposition: 14:35
== END 2019-04-16 14:50 | disposition home or self-care (01) ==
LOC: ED 11:12
DX: M79.605 Pain in left leg (principal); H57.89 Other specified disorders of eye and adnexa; I10 Essential (primary) hypertension; Z86.718 Personal history of other venous thrombosis and embolism; F17.200 Nicotine dependence, unspecified, uncomplicated; Z79.899 Other long term (current) drug therapy

== ENCOUNTER 2021-01-14 10:32 | Emergency (ER) | payer OTHER ==
[2021-01-14 10:55] VITALS: BP 136/97
[2021-01-14 11:28] LABS: Basophils % (Auto) 0.9 % (0.0-1.8); Eosinophils % (Auto) 0.3 % (0.0-4.3); Hematocrit 41.9 % (35.5-45.6); Hemoglobin 13.2 gm/dl (11.8-15.2); Lymphocytes # (Auto) 1.6 K/mm3 (1.2-5.4); Mean Corpuscular HGB Conc 32 % (32-34); Mean Corpuscular Volume 90 fl (84-94); Monocytes # (Auto) 0.3 K/mm3 (0.0-0.8); Red Blood Count 4.65 M/mm3 (3.65-5.03); Red Cell Distribution Width 16.2 % (13.2-15.2)
[2021-01-14 11:48] LABS: Platelet Count 82 K/mm3 (140-440)
[2021-01-14 12:21] LABS: Alanine Aminotransferase 23 units/L (7-56); Albumin 4.2 g/dL (3.9-5); Blood Urea Nitrogen 10 mg/dL (9-20); Calcium 8.9 mg/dL (8.4-10.2); Hemolysis Index 6
[2021-01-14 12:35] LABS: BUN/Creatinine Ratio 17
--- NOTE | 2021-01-14 12:54 | Event Note ---
ED Screening Note ED Screening Note: +n/v +abd pain +back pain hx of pancreatitis states he is drinking 1/2 pint of liquor a day pmhx DVT in left leg-eliquis, HTN no blood in stool no allergies to meds This initial assessment/diagnostic orders/clinical plan/treatment(s) is/are subject to change based on patients health status, clinical progression and re- assessment by fellow clinical providers in the ED. Further treatment and workup at subsequent clinical providers discretion. Patient/guardian urged not to elope from the ED as their condition may be serious if not clinically assessed and managed. Initial orders include: labs, urine, ct
[2021-01-14] MEDS ORDERED: SODIUM CHLORIDE 0.9% 1000 ML 1,000 ML IV ONE (12:55)
[2021-01-14] MEDS ORDERED: POTASSIUM CHLORIDE ER 20 MEQ TAB PO ONE (12:55)
[2021-01-14 20:10] LABS: Bilirubin,Urine SM (Negative); Blood,Urine NEG (Negative); Color,Urine Amber (Yellow); Mucus,Urine 3+ /HPF; RBC,Urine < 1.0 /HPF (0.0-6.0)
[2021-01-14 20:22] LABS: Ictotest,Urine Negative (Negative)
--- NOTE | 2021-01-14 21:07 | Cat Scan Report ---
CT ABDOMEN AND PELVIS WITH CONTRAST INDICATION / CLINICAL INFORMATION: epigastric abd pain, n/v x4days [id number] 100ml. TECHNIQUE: Axial CT images were obtained through the abdomen and pelvis after 100 mL of Omnipaque [address] scans at this location are performed using CT dose reduction for ALARA by means of automated exposure control. COMPARISON: None available. FINDINGS: LOWER CHEST: No significant abnormality. AORTA / ARTERIES: Moderate atherosclerotic calcification without acute abnormality. IVC / VEINS: There is an IVC filter within the infrarenal IVC. LYMPH NODES: No significant adenopathy. COLON: No significant abnormality. APPENDIX: No significant abnormality. STOMACH / SMALL BOWEL: No significant abnormality. PERITONEUM: No free fluid. No free air. No fluid collection. LIVER: There is decreased attenuation of the liver. No focal liver lesion. GALLBLADDER: No significant abnormality. BILE DUCTS: No significant abnormality. PANCREAS: There is mild prominence of the pancreatic duct with a calcified and hypodense uncinate pro cess. This area measures approximately 2.0 x 2.8 x 6.2 cm. SPLEEN: No significant abnormality. ADRENALS: No significant abnormality. RIGHT KIDNEY / URETER: No significant abnormality. LEFT KIDNEY / URETER: No significant abnormality. URINARY BLADDER: No significant abnormality. REPRODUCTIVE ORGANS: No significant abnormality. SKELETAL SYSTEM: No significant abnormality. ADDITIONAL FINDINGS: None. IMPRESSION: 1. Hypointense and partially calcified mass involving the uncinate process of the pancreas, measuring up to 6.2 cm in the craniocaudal dimension. This may represent sequela of chronic pancreatitis; jeffries sera, given the pancreatic duct dilation a pancreatic neoplasm is of concern. IVC Filter Recommendation: IVC filters should be removed if possible when they are no longer clinical ly necessary. (1) Refer to the established IVC filter management plan; (2) If there is no established plan for the patient's IVC filter, consider referral to interventional/vascular clinician on a nonem ergent basis for evaluation. Signer Name: Julius Smallwood DO Signed: 01/14/2021 9:03 PM Workstation Name: [id number]
--- NOTE | 2021-01-16 10:06 | Electrocardiograph Report ---
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
== END 2021-01-15 23:42 ==
LOC: ED 10:32
DX: K85.90 Acute pancreatitis without necrosis or infection, unspecified (principal); Z53.21 Procedure and treatment not carried out due to patient leaving prior to being seen by health care provider
CPT/HCPCS: 36415; 74177; 80053; 81001; 83690; 85025; 93005; Q9967